=== PATIENT | male | born 1975 | race Caucasian/White ===

== ENCOUNTER 2019-09-03 10:41 | Emergency (ER) | payer SELFPAY ==
[~2019-09-03] VITALS: Ht 162.6 cm; Wt 83.5 kg
[2019-09-03 10:45] VITALS: Ht 162.6 cm; Wt 83.5 kg
[2019-09-03 12:42] VITALS: BP 164/90
== END 2019-09-03 12:42 | disposition home or self-care (01) ==
LOC: ED 10:41
DX: S63.502A Unspecified sprain of left wrist, initial encounter (principal); X50.0XXA Overexertion from strenuous movement or load, initial encounter; Y93.89 Activity, other specified; Y92.89 Other specified places as the place of occurrence of the external cause; Y99.8 Other external cause status
CPT/HCPCS: A4570; Q0092

== ENCOUNTER 2019-11-07 07:49 | Emergency (ER) | payer SELFPAY ==
[~2019-11-07] VITALS: Ht 160 cm; Wt 83.0 kg
[2019-11-07 08:30] VITALS: BP 185/120; Ht 160 cm; Wt 83.0 kg
== END 2019-11-07 12:06 | disposition left against medical advice (07) ==
LOC: ED 07:49
DX: Z53.21 Procedure and treatment not carried out due to patient leaving prior to being seen by health care provider (principal)

== ENCOUNTER 2020-03-05 05:44 | Emergency (ER) | payer OTHER ==
[~2020-03-05] VITALS: Ht 157.5 cm; Wt 82.6 kg
[2020-03-05 05:50] VITALS: Ht 157.5 cm; Wt 82.6 kg
[2020-03-05 07:47] VITALS: BP 188/120
== END 2020-03-05 07:47 | disposition home or self-care (01) ==
LOC: ED 05:44
DX: M65.4 Radial styloid tenosynovitis [de Quervain] (principal); I10 Essential (primary) hypertension
CPT/HCPCS: J1885